=== PATIENT | female | born 1990 | race Caucasian/White ===

== ENCOUNTER 2018-11-13 14:09 | Emergency (ER) | payer BC, OTHER ==
[2018-11-13] MEDS ORDERED: fentaNYL 100 MCG/2 ML INJ IVP ONE (14:26)
[2018-11-13] MEDS ORDERED: NS 1,000 ML IV ONE (14:26)
[2018-11-13] MEDS ORDERED: ONDANSETRON 4 MG/2 ML VIAL IVP ONE (14:26)
--- NOTE | 2018-11-13 14:31 | EDPHY ---
H & P Stated Complaint: abd pain Time Seen by Provider: 11/13/18 14:19 HPI/ROS: CHIEF COMPLAINT: Abdominal pain HISTORY OF PRESENT ILLNESS: 28-year-old female presents to the emergency department with epigastric abdominal pain which is been present since this morning. Associated with a small amount nausea. No vomiting. Pain occasion feels like it comes up towards her chest. Similar to an episode of gastritis that she had previously. She reports having a endoscopy and ultrasound ( gallbladder) performed 1 year ago in [facility] where she used to live. Patient has had no abdominal surgeries. No fevers or chills. No vomiting or diarrhea. No urinary complaints. Was seen at urgent care prior to presenting here. At that time she was given what sounds like a GI cocktail reports that her pain is slightly improved. They were concerned regarding pancreatitis. REVIEW OF SYSTEMS: A comprehensive 10 system review of systems was reviewed and is otherwise negative aside from elements mentioned in the history of present illness and medical decision making. PAST MEDICAL HISTORY: Prior episode of possible GERD. SOCIAL HISTORY: Positive alcohol use, nonsmoker. No illicit drug use. VITAL SIGNS Reviewed by me. GENERAL: Well-developed, well-nourished, resting comfortably in no respiratory distress. HEENT: Atraumatic. Eyes: No icterus, no injection. Mouth: Dry lips, moist mucous membranes. No erythema or lesions. Neck: supple with no adenopathy. LUNGS: Clear to auscultation bilaterally, no wheezes, rhonchi or rales. CARDIAC: Regular rate and rhythm, no rubs, murmurs or gallops. ABDOMEN: Soft, epigastric tenderness palpation. No guarding or rebound. No right upper quadrant tenderness. No lower quadrant tenderness. BACK: No CVA tenderness. EXTREMITIES: No trauma. No edema. Range of motion is normal throughout. NEURO: Alert and oriented, grossly nonfocal. SKIN: Warm and dry, no rash. PSYCHIATRIC: Normal mentation, no agitation. - Personal History Current Tetanus/Diphtheria Vaccine: Yes Current Tetanus Diphtheria and Acellular Pertussis (TDAP): Yes - Medical/Surgical History Hx Asthma: No Hx Chronic Respiratory Disease: No Hx Diabetes: No Hx Cardiac Disease: No Hx Renal Disease: No Hx Cirrhosis: No Hx Alcoholism: No Hx HIV/AIDS: No Hx Splenectomy or Spleen Trauma: No Other PMH: denies - Social History Smoking Status: Never smoked Constitutional: Initial Vital Signs Temperature (C) 37.8 C 11/13/18 14:13 Heart Rate 80 11/13/18 14:13 Respiratory Rate 16 11/13/18 14:13 Blood Pressure 120/88 H 11/13/18 14:13 O2 Sat (%) 97 11/13/18 14:13 O2 Delivery Mode Room Air Allergies/Adverse Reactions: No Known Allergies Allergy (Unverified 11/13/18 14:13) Home Medications: Medication Instructions Recorded Bcp 11/13/18 Medical Decision Making ED Course/Re-evaluation: IV placed; patient received fentanyl 75 mcg. Laboratory evaluation including CBC, liver function tests, lipase, electrolytes , test, all largely unremarkable. Suspect that the patient's discomfort is caused by gastritis/GERD or biliary colic. Do not feel patient needs a urgent/emergent ultrasound. No evidence of pancreatitis. Discussed these results with the patient. She is feeling better after receiving a GI cocktail a urgent care. She feels comfortable being discharged home. Please see the discharge instructions. Differential Diagnosis: Differential diagnosis of the patient's abdominal pain was considered including but not limited to cholecystitis, gastritis, peptic ulcers disease, and pancreatitis. - Data Points Laboratory Results: Laboratory Results 11/13/18 14:25 11/13/18 14:25 Medications Given: Discontinued Medications Fentanyl (Sublimaze) 75 mcg IVP EDNOW ONE Stop: 11/13/18 14:27 Last Admin: 11/13/18 14:33 Dose: 75 mcg Sodium Chloride (Ns) 1,000 mls @ 0 mls/hr IV EDNOW ONE; Wide Open PRN Reason: Protocol Stop: 11/13/18 14:27 Last Admin: 11/13/18 14:33 Dose: 1,000 mls Ondansetron HCl (Zofran) 4 mg IVP EDNOW ONE Stop: 11/13/18 14:27 Last Admin: 11/13/18 14:34 Dose: 4 mg Pantoprazole Sodium (Protonix) 40 mg IVP EDNOW ONE Stop: 11/13/18 15:13 Last Admin: 11/13/18 15:19 Dose: 40 mg Departure - Departure Disposition: Home, Routine, Self-Care Clinical Impression: Epigastric pain Abdominal pain Qualifiers: Abdominal location: epigastric Qualified Code(s): R10.13 - Epigastric pain Condition: Good Instructions: Acute Abdominal Pain (ED), Epigastric Pain (ED) Additional Instructions: Your abdominal pain may be related to gastritis, reflux, or mild ulcer disease. I recommend you begin taking omeprazole which is available [id number]. Please take this as directed for the next 2 weeks. Avoid alcohol, smoking, or caffeine until you are feeling better. You been given referral to a primary care physician. Please follow up as soon as possible for further evaluation. Her symptoms are not improving as expected with the above treatment, please return to the emergency department or seek care urgently. Especially if he develops fever, vomiting, worsening pain, blood in the stool, or other concerns. Referrals: NONE *PRIMARY CARE P,. [Primary Care Provider] - As per Instructions Yi Lew MD [Medical Doctor] - As per Instructions (Dr. Lew is primary care physician. Please call her office to establish care.)
[2018-11-13 14:36] LABS: PLATELET COUNT 256 10^3/uL (150-400)
[2018-11-13] MEDS ORDERED: PANTOPRAZOLE SODIUM 40 MG VIAL IVP ONE (15:12)
[2018-11-13 15:19] VITALS: BP 121/84
== END 2018-11-13 15:23 | disposition home or self-care (01) ==
DX: R10.13 Epigastric pain (principal); E86.9 Volume depletion, unspecified
CPT/HCPCS: 96374; J2405; J3010